=== PATIENT | female | born 1955 | race Caucasian/White ===

== ENCOUNTER 2017-09-09 21:15 | Observation (INO) ==
[2017-09-09] MEDS ORDERED: Aspirin 81 MG TAB.CHEW PO ONE (22:36)
[2017-09-09 23:19] LABS: Basophils # 0.1 K/mcL (0.0-0.2); Basophils % 0.6 %; Eosinophils # 0.2 K/mcL (0.0-0.6); Eosinophils % 2.2 %; Hematocrit 39.9 % (35.3-44.9); Hemoglobin 13.6 g/dL (11.5-15.4); Immature Granulocytes % 0.2 % (0-4); Lymphocytes # 3.5 K/mcL (0.6-4.6); Lymphocytes % 36.4 %; Mean Corpuscular HGB Conc 34.1 g/dL (31.6-35.5); Mean Corpuscular Hemoglobin 29.9 pg (28.0-33.3); Mean Corpuscular Volume 87.7 fL (83.0-100.0); Mean Platelet Volume 9.8 fL (9.4-12.4); Monocytes # 0.8 K/mcL (0.0-1.3); Monocytes % 8.7 %; Neutrophils # 4.9 K/mcL (1.6-8.9); Platelet Count 184 K/mcL (140-400); Red Blood Count 4.55 M/mcL (3.82-4.97); Red Cell Distribution Width 12.5 % (11.5-14.5); Segmented Neutrophils % 51.9 %
[2017-09-09 23:24] LABS: Prothrombin Time 11.1 Seconds (9.4-12.1)
--- NOTE | 2017-09-09 23:24 | Emergency Department Note ---
Disposition Clinical Impression: Neck pain, Elevated troponin Disposition: Admitted As Inpatient Condition: Fair General Adult HPI - General Chief complaint: ED Neck Pain/Injury Stated complaint: Neck Pain Time Seen by Provider: 09/09/17 22:35 Source: patient - History of Present Illness Pain Scale: 3 - Related Data Home Medications Medication Instructions Recorded Confirmed Aspirin [Lo-Dose Aspirin EC] 81 mg PO DAILY 09/10/17 09/10/17 Atorvastatin [Lipitor] 80 mg PO HS 09/10/17 09/10/17 Clopidogrel [Plavix] 75 mg PO DAILY 09/10/17 09/10/17 Metoprolol [Lopressor] 25 mg PO BID 09/10/17 09/10/17 Allergies Allergy/AdvReac Type Severity Reaction Status Date / Time codeine Allergy Palpitation Verified 09/09/17 21:35 s Past Medical History - Past Medical History Medical history: Reports: coronary artery disease, hyperlipidemia Psychiatric history: Reports: no psych history - Social History Smoking Status: Former smoker Alcohol use: Reports: none Drug use: Reports: none Physical Exam - General General appearance: alert, in no apparent distress Course - Reevaluation(s) Reevaluation #1: I examined this patient and my medical decision-making was reviewed with Dr. Duque. I agree with the documented findings, disposition and treatment plan. This is a 62 year-old female with history of HLD and CAD/RI/stent who presents with neck pain for the past day. The pain involves the anterior neck bilaterally , as well as the right paraspinal area, radiating down toward the shoulder. The pain is worse with head turning. Patient had some neck pain in association with her RI in 2010, and her current neck pain went away after NTG, so she wanted to be evaluated to make sure it wasn't her heart. She denies any associated chest pain, dyspnea, nausea, diaphoresis, sore throat, or otaltia. She is pain-free at this time. On exam, patient is comfortable. HEENT, heart, and lung exams normal. Neuro nonfocal. No bruit. Overall, patient's neck pain seems musculoskeletal in nature. We will perform testing to rule out ACS. Infection of the neck or vascular disease of the neck are unlikely given patient's history and exam. Time: 23:19 Vital Signs Temperature 98.1 F 09/09/17 21:36 Pulse Rate 64 09/09/17 21:36 Respiratory Rate 16 09/09/17 21:36 Blood Pressure 139/85 09/09/17 21:36 O2 Sat by Pulse Oximetry 98 09/09/17 21:36 Temperature 98.1 F 09/09/17 22:02 Pulse Rate 56 09/10/17 00:40 Respiratory Rate 16 09/10/17 00:40 Blood Pressure 144/86 09/10/17 00:40 O2 Sat by Pulse Oximetry 97 09/10/17 00:40 Oxygen Delivery Oxygen Delivery Room Air Medical Decision Making - Lab Data Result diagrams: 09/09/17 22:46 09/09/17 22:46 Lab Results 09/09/17 09/09/17 09/09/17 Range/Units 22:36 22:46 22:46 WBC 9.5 (4.3-11.1) K/mcL RBC 4.55 (3.82-4.97) M/mcL Hgb 13.6 (11.5-15.4) g/dL Hct 39.9 (35.3-44.9) % MCV 87.7 (83.0-100.0) fL MCH 29.9 (28.0-33.3) pg MCHC 34.1 (31.6-35.5) g/dL RDW 12.5 (11.5-14.5) % Plt Count 184 (140-400) K/mcL MPV 9.8 (9.4-12.4) fL Immature Gran % 0.2 (0-4) % Seg Neutrophils % 51.9 % Lymphocytes % 36.4 % Monocytes % 8.7 % Eosinophils % 2.2 % Basophils % 0.6 % Neutrophils # 4.9 (1.6-8.9) K/mcL Lymphocytes # 3.5 (0.6-4.6) K/mcL Monocytes # 0.8 (0.0-1.3) K/mcL Eosinophils # 0.2 (0.0-0.6) K/mcL Basophils # 0.1 (0.0-0.2) K/mcL PT 11.1 (9.4-12.1) Seconds INR 1.0 APTT 27.2 (26.0-36.0) Seconds Sodium 141 (136-145) mEq/L Potassium 3.5 (3.5-5.1) mEq/L Chloride 110 H (98-107) mEq/L Carbon Dioxide 24 (23-29) mEq/L BUN 8 (8-23) mg/dL Creatinine 0.70 (0.60-1.20) mg/dL Est GFR ( Amer) > 60 (> 60) Est GFR (Non-Af Amer) > 60 (> 60) BUN/Creatinine Ratio 11 (6-26) Glucose 115 H (70-105) mg/dL Calculated Osmolality 291 (280-300) Calcium 9.4 (8.6-10.3) mg/dL Troponin I 0.06 H* (< 0.04) ng/mL - Radiology Data Radiology results reviewed: Yes I reviewed the patient's radiology results. XR/XR chest 1V portable IMPRESSION: No significant findings in the chest. - EKG Data EKG #1 EKG attestation: Yes I reviewed and interpreted this EKG. EKG shows normal: sinus rhythm Rate: normal Rhythm: NSR [place]/QRS: normal Interpretation: no acute changes (inferior Q waves noted)
[2017-09-09 23:27] LABS: Activated Partial Thrombo Time 27.2 Seconds (26.0-36.0)
--- NOTE | 2017-09-09 23:37 | Emergency Department Note ---
Disposition Clinical Impression: Neck pain, Elevated troponin Disposition: Admitted As Inpatient Condition: Fair Referrals: Greg Kahn MD [Primary Care Provider] - Forms: ED Satisfaction Letter Time of Disposition: 00:27 General Adult HPI - General Chief complaint: ED Neck Pain/Injury Stated complaint: Neck Pain Time Seen by Provider: 09/09/17 22:35 Source: patient Mode of arrival: ambulatory Limitations: no limitations Nursing Notes Reviewed: Yes Vital Signs Reviewed: Yes - History of Present Illness HPI Narrative: Patient is a 62-year-old female that presented to the emergency department with neck pain. She states that the neck pain began yesterday and she had concerns because she had neck pain when she had a previous AK. Patient denies any chest pain, shortness of breath or nausea or diaphoresis at this time. Patient does state that she took one nitroglycerin and this relieved her neck pain. Patient states that the neck is not painful to touch but does hurt when she turns her neck. Patient denies any injury to the neck or any recent falls. Pain Scale: 3 - Related Data Home Medications Medication Instructions Recorded Confirmed Aspirin [Lo-Dose Aspirin EC] 81 mg PO DAILY 09/10/17 09/10/17 Atorvastatin [Lipitor] 80 mg PO HS 09/10/17 09/10/17 Clopidogrel [Plavix] 75 mg PO DAILY 09/10/17 09/10/17 Metoprolol [Lopressor] 25 mg PO BID 09/10/17 09/10/17 Allergies Allergy/AdvReac Type Severity Reaction Status Date / Time codeine Allergy Palpitation Verified 09/09/17 21:35 s All systems ED: reviewed and negative except as stated. Cardiovascular: Denies: chest pain Respiratory: Denies: dyspnea Gastrointestinal: Denies: abdominal pain, nausea, vomiting Musculoskeletal: Reports: neck pain Past Medical History - Past Medical History Medical history: Reports: coronary artery disease, hyperlipidemia Psychiatric history: Reports: no psych history - Social History Smoking Status: Former smoker Alcohol use: Reports: none Drug use: Reports: none Physical Exam - General Limitations: no limitations General appearance: alert, in no apparent distress - Head Head exam: atraumatic, normocephalic - Eye Eye exam: Present: normal appearance, EOMI - Neck Neck exam: Present: normal inspection, full ROM, trachea midline. Absent: tenderness - Expanded Neck Exam Neck exam focused ED: Absent: midline tenderness, paraspinal tenderness, tracheal deviation, anterior neck swelling, carotid bruit - Respiratory Respiratory exam: Present: normal lung sounds bilaterally. Absent: respiratory distress, wheezes - Cardiovascular Cardiovascular exam: Present: regular rate, normal rhythm, normal heart sounds, +S1, +S2 - Abdominal Exam Abdominal exam: Present: soft, Non-Tender, normal bowel sounds - Neurological Exam Neurological exam: Present: alert, oriented X3 - Psychiatric Psychiatric exam: Present: normal affect, normal mood - Skin Skin exam: Present: warm, dry, intact Course Vital Signs Temperature 98.1 F 09/09/17 21:36 Pulse Rate 64 09/09/17 21:36 Respiratory Rate 16 09/09/17 21:36 Blood Pressure 139/85 09/09/17 21:36 O2 Sat by Pulse Oximetry 98 09/09/17 21:36 Temperature 98.1 F 09/09/17 22:02 Pulse Rate 61 09/09/17 23:53 Respiratory Rate 16 09/09/17 23:53 Blood Pressure 149/101 09/09/17 23:53 O2 Sat by Pulse Oximetry 95 09/09/17 23:53 Oxygen Delivery Oxygen Delivery Room Air Medical Decision Making - MDM Narrative Medical decision making narrative: Due to the patient presenting with neck pain has been similar to previous pain when she had an AK we will obtain a CBC, BMP, troponin and chest x-ray and EKG. The patient's troponin was elevated 0.06. We have no previous troponins for comparison. Due to this being similar to patient's previous AK and having elevated troponin I feel that is necessary and the patient be admitted to the hospital for further evaluation and management. The patient's EKG did not show any evidence of STEMI at this time. Remainder of her laboratory testing was unremarkable. Patient was given an aspirin here in the emergency department. Chest x-ray showed no acute cardiopulmonary process. I called and spoke with the hospitalist and they have accepted the patient to their service. The patient will be admitted to the hospital for further evaluation and management this time. - Medical Records Medical records reviewed: Yes I reviewed the patient's medical records. - Lab Data Lab results reviewed: Yes I reviewed the patient's lab results. Result diagrams: 09/09/17 22:46 09/09/17 22:46 Lab Results 05/06/18 05/06/18 05/06/18 Range/Units 22:36 22:46 22:46 WBC 9.5 (4.3-11.1) K/mcL RBC 4.55 (3.82-4.97) M/mcL Hgb 13.6 (11.5-15.4) g/dL Hct 39.9 (35.3-44.9) % MCV 87.7 (83.0-100.0) fL MCH 29.9 (28.0-33.3) pg MCHC 34.1 (31.6-35.5) g/dL RDW 12.5 (11.5-14.5) % Plt Count 184 (140-400) K/mcL MPV 9.8 (9.4-12.4) fL Immature Gran % 0.2 (0-4) % Seg Neutrophils % 51.9 % Lymphocytes % 36.4 % Monocytes % 8.7 % Eosinophils % 2.2 % Basophils % 0.6 % Neutrophils # 4.9 (1.6-8.9) K/mcL Lymphocytes # 3.5 (0.6-4.6) K/mcL Monocytes # 0.8 (0.0-1.3) K/mcL Eosinophils # 0.2 (0.0-0.6) K/mcL Basophils # 0.1 (0.0-0.2) K/mcL PT 11.1 (9.4-12.1) Seconds INR 1.0 APTT 27.2 (26.0-36.0) Seconds Sodium 141 (136-145) mEq/L Potassium 3.5 (3.5-5.1) mEq/L Chloride 110 H (98-107) mEq/L Carbon Dioxide 24 (23-29) mEq/L BUN 8 (8-23) mg/dL Creatinine 0.70 (0.60-1.20) mg/dL Est GFR ( Amer) > 60 (> 60) Est GFR (Non-Af Amer) > 60 (> 60) BUN/Creatinine Ratio 11 (6-26) Glucose 115 H (70-105) mg/dL Calculated Osmolality 291 (280-300) Calcium 9.4 (8.6-10.3) mg/dL Troponin I 0.06 H* (< 0.04) ng/mL - Radiology Data Radiology results reviewed: Yes I reviewed the patient's radiology results. Chest X-Ray 09/09/17 22:36 IMPRESSION: No significant findings in the chest. D/ / Ilia Vazquez MD / Ilia Vazquez MD Interpreting Provider: Ilia Vazquez MD - EKG Data EKG #1 EKG attestation: Yes I reviewed and interpreted this EKG. EKG results narrative: EKG showed a sinus rhythm at a rate of 62 bpm, MA interval of 145, QRS duration of 97, QTc of 422 with a normal axis.
[2017-09-09 23:40] LABS: BUN/Creatinine Ratio 11 (6-26); Blood Urea Nitrogen 8 mg/dL (8-23); Calcium 9.4 mg/dL (8.6-10.3); Carbon Dioxide 24 mEq/L (23-29); Chloride 110 mEq/L (98-107); Glucose 115 mg/dL (70-105); Osmolality,Calculated 291 (280-300); Potassium 3.5 mEq/L (3.5-5.1); Sodium 141 mEq/L (136-145); eGFR For African Americans > 60 (> 60); eGFR For Non-African Americans > 60 (> 60)
[2017-09-09 23:45] LABS: Troponin I 0.06 ng/mL (< 0.04)
[2017-09-10] MEDS ORDERED: Naloxone 0.4 MG/ML INJ IVP PRN (02:23)
[2017-09-10] MEDS ORDERED: Nitroglycerin 0.4 MG TAB.SUBL SL PRN (02:25)
--- NOTE | 2017-09-10 02:26 | Internal Med History&Physical ---
Date of Encounter: 09/10/17 Time of Encounter: 02:26 Internal Medicine - H&P: HPI Chief complaint: Neck pain Admitted From: Emergency Dept Plans for Post Hospital Care: Home History of present illness: Ms. Rosales is a 62 year old female with h/o- CAD, presents with c/o- 2- day h/ o neck pain, Patient reports sudden onset, constant moderate intensity pain- pressure-like sensation in anterior neck, spreading to back of her neck and right shoulder. Pain is aggravated by movement and ambulation, relieved with Nitroglycerine. Patient claims she had similar pain when she had previous ME and stent placement. No shortness of breath, palpitations, diaphoresis, nausea, vomiting or dizziness. SHe has no h/o- esophageal issues. Past Med Surg Social Fam HX - Past Medical History Source: patient Medical history: coronary artery disease, GERD, hyperlipidemia Psychiatric history: no psych history - Past Surgical History Surgical History: angioplasty/stent, other (upper lip cancer excision) - Social History Smoking Status: Former smoker (quit 1 month ago) Packs per day: 1 Alcohol use: none Drug use: none Current living situation: Home, With Family Activity Level: Independent ambulation Recent Out of Country Travel Within the Last 8 Weeks: No Exposure or Possible Exposure to Illness During Travel: No - Family History Father Hx Family Cardiac Disorders: Yes ([place]) Mother Hx Family Cancer: Yes Internal Medicine - H&P: Meds Aspirin [Lo-Dose Aspirin EC] 81 mg PO DAILY 09/10/17 [History] Atorvastatin [Lipitor] 80 mg PO HS 09/10/17 [History] Clopidogrel [Plavix] 75 mg PO DAILY 09/10/17 [History] Metoprolol [Lopressor] 25 mg PO BID 09/10/17 [History] 3 Allergy/AdvReac Type Severity Reaction Status Date / Time codeine Allergy Palpitation Verified 09/09/17 21:35 s All Systems PM: A 10-system review of systems was performed and is negative for pertinent findings except as documented above in the HPI. - Constitutional Constitutional: no chills, no fever(s), no night sweats - EENT Eyes: no change in vision, no discharge, no pain, no photophobia Ears: no ear discharge, no ear pain, no tinnitus Nose, mouth and throat: no dysphagia, no nasal discharge, no neck pain, no sore throat - Cardiovascular Cardiovascular ROS IM: no chest pain, no diaphoresis, no dyspnea, no lightheadedness, no palpitations, no syncope - Respiratory Respiratory: no cough, no dyspnea, no wheezing, no excessive phlegm production - Gastrointestinal Gastrointestinal: no abdominal pain, no diarrhea, no hematemesis, no hematochezia, no melena, no nausea, no vomiting - Genitourinary Genitourinary: no change in urinary stream, no dysuria, no flank pain, no hematuria - Musculoskeletal Musculoskeletal ROS IM: limited range of motion, neck pain, no numbness, no tingling - Integumentary Integumentary IM: no rash, no unusual bruising - Neurological Neurological ROS: no confusion, no convulsions, no focal weakness, no numbness, no tingling, no tremor(s) - Hematologic/Lymphatic Hematologic/Lymphatic: no easy bruising - Constitutional Vitals: Temp Pulse Resp BP Pulse Ox 98.1 F 56 16 144/86 97 09/09/17 22:02 09/10/17 00:40 09/10/17 00:40 09/10/17 00:40 09/10/17 00:40 General appearance: Present: A&O X 3, answers questions appropriately - Neck Neck exam general surgery: Present: supple, trachea midline. Absent: lymphadenopathy Additional comments: nontender, no restriction in ROM - Respiratory Respiratory exam: Present: CTAB. Absent: accessory muscle use, rales, rhonchi, wheezes - Cardiovascular Cardiovascular exam: Present: RRR, +S1, +S2. Absent: diastolic murmur, gallop, rubs, systolic murmur - GI/Abdominal GI/Abdominal exam: Present: normal bowel sounds, soft, no peritoneal signs. Absent: distended, tenderness - Extremities Exam Extremities exam: Present: full ROM, warm, radial pulses palpable and symmetrical. Absent: calf tenderness, cyanotic, pedal edema - Neurological Exam Neurological exam: Present: CN II-XII intact, oriented X3, no focal deficits. Absent: pronater drift, facial droop, speech deficit - Skin Skin exam: Present: dry, intact Internal Med - H&P Results - Labs CBC & Chem 7: 09/10/17 03:56 09/10/17 03:56 - EKG Data -: EKG Interpreted by Myself EKG shows normal: sinus rhythm Rate: normal - Assessment and plan (1) Neck pain Current Visit: Yes Status: Acute Assessment and plan: anginal equivalent per patient. Noted to have mild Troponin leak 0.06; continue Telemetry monitoring, trend troponins; PRN Nitroglycerine. continue ASA, beta jone, statin; will consult Cardiology due to Trop leak; cannot get stress test due to positive Troponin; check lipid profile; (2) Elevated troponin Current Visit: Yes Status: Acute Assessment and plan: plan as above; (3) CAD (coronary artery disease) Current Visit: Yes Status: Chronic Assessment and plan: resume home meds; h/o- stents placed in 2010; Qualifiers: Coronary Disease-Associated Artery/Lesion type: [place] artery [place] vs. transplanted heart: [place] heart Associated angina: without angina Qualified Code(s): I25.10 - Atherosclerotic heart disease of [place] coronary artery without angina pectoris (4) Hyperlipidemia Current Visit: Yes Status: Chronic Qualifiers: Hyperlipidemia type: unspecified Qualified Code(s): E78.5 - Hyperlipidemia , unspecified - Time Spent With Patient Total time spent is greater than 50% in coordination of care (as documented) at patient's floor/unit and/or counseling patient:
[2017-09-10 04:17] LABS: Basophils # 0.1 K/mcL (0.0-0.2); Basophils % 0.8 %; Eosinophils # 0.2 K/mcL (0.0-0.6); Eosinophils % 2.4 %; Hematocrit 38.2 % (35.3-44.9); Hemoglobin 12.8 g/dL (11.5-15.4); Immature Granulocytes % 0.4 % (0-4); Lymphocytes # 3.1 K/mcL (0.6-4.6); Lymphocytes % 40.1 %; Mean Corpuscular HGB Conc 33.5 g/dL (31.6-35.5); Mean Corpuscular Hemoglobin 29.6 pg (28.0-33.3); Mean Corpuscular Volume 88.4 fL (83.0-100.0); Mean Platelet Volume 9.8 fL (9.4-12.4); Monocytes # 0.7 K/mcL (0.0-1.3); Monocytes % 8.4 %; Neutrophils # 3.8 K/mcL (1.6-8.9); Platelet Count 160 K/mcL (140-400); Red Blood Count 4.32 M/mcL (3.82-4.97); Red Cell Distribution Width 12.4 % (11.5-14.5); Segmented Neutrophils % 47.9 %
[2017-09-10 04:40] LABS: BUN/Creatinine Ratio 10 (6-26); Blood Urea Nitrogen 7 mg/dL (8-23); Carbon Dioxide 26 mEq/L (23-29); Chloride 111 mEq/L (98-107); Chol/HDL Ratio 3.4 (0-4.9); Cholesterol 95 mg/dL (< 200); Glucose 105 mg/dL (70-105); HDL Cholesterol 28 mg/dL (40-59); LDL Cholesterol,Calculated 31 mg/dL (0-99); Osmolality,Calculated 294 (280-300); Potassium 3.3 mEq/L (3.5-5.1); Sodium 143 mEq/L (136-145); Triglycerides 180 mg/dL (< 150); eGFR For African Americans > 60 (> 60); eGFR For Non-African Americans > 60 (> 60)
[2017-09-10] MEDS: Aspirin Enteric Coated 81 MG Tablet PO SCH (08:31)
--- NOTE | 2017-09-10 11:57 | Cardiology Consult Note ---
Addendum entered and electronically signed by aMrgaret Lancaster CNP 09/10/17 13: 15: Patient agreeable for LHC. Risks versus benefits of LHC explained to patient. Agreeable to proceed. Further recommendations pending LHC. Original Note: Date of Encounter: 09/10/17 Time of Encounter: 10:00 Assessment and Plan (1) Elevated troponin Current Visit: Yes Status: Acute Per cardiology: -Troponin 0.06, 0.07, 0.06. -Reports exertional anginal equivalent symptoms. -Denies current symptoms. -On asa, statin, plavix, BB. -NO acute ischemic ECG changes. -LHC 2010 with 40% proximal LAD, 90-99% proximal LAD with ELBA, 60% diagonal 1, 30% proximal circumflex, 30% OM1, 20% proximal RCA. -TTE 04/2011 with LVEF 55%, mild diastolic dysfunction. -Mild troponins, however concerning symptoms. Discussed potential LHC vs stress with patient. Patient wishes to discuss with son and then decide. Risks versus benefits of LHC explained to patient, states she will discuss with son and then decide. -Will check TTE. (2) Tobacco abuse Current Visit: Yes Status: Chronic Per cardiology: -Known tobacco abuse. -Smoking cessation education provided. Discussion w patient/family: The assessment and plan as outlined above was discussed with the patient who expressed understanding and agreement. All questions were answered. Thank you for involving us in the care of your patient. Please call with any questions. Discussed and reviewed with . History of Present Illness Consult date: 09/10/17 Requesting physician: Nika Stafford Consult reason: elevated troponinq Chief complaint: neck pain History of present illness: Ms. Rosales is a 62 year old female with a relevant past medical history of CAD s/p [place] and PCI, current tobacco abuse. Patient presented to [facility] with complaints of bilateral neck pain, reports symptoms worse with exertion. States symptoms relieved with rest and nitro. Denies current neck pain. Patient reports symptoms similar to previous angina, however states not as extreme. Past Med Surg Social Fam HX - Past Medical History Attestation: Yes The following information was validated with the patient. Source: patient, old records reviewed Medical history: coronary artery disease, GERD, hyperlipidemia Psychiatric history: no psych history - Past Surgical History Surgical History: angioplasty/stent, other (upper lip cancer excision) - Social History Smoking Status: Former smoker (quit 1 month ago) Packs per day: 1 Alcohol use: none Drug use: none - Family History Father Hx Family Cardiac Disorders: Yes ([place]) Mother Hx Family Cancer: Yes Medications and Allergies Aspirin [Lo-Dose Aspirin EC] 81 mg PO DAILY 09/10/17 [History] Atorvastatin [Lipitor] 80 mg PO HS 09/10/17 [History] Clopidogrel [Plavix] 75 mg PO DAILY 09/10/17 [History] Metoprolol [Lopressor] 25 mg PO BID 09/10/17 [History] 3 Allergy/AdvReac Type Severity Reaction Status Date / Time codeine Allergy Palpitation Verified 09/09/17 21:35 s All Systems Review: The remainder of the systems were reviewed and are negative - Cardiovascular Cardiovascular: as per HPI, chest pain with exertion Physical Examination Vital Signs, Last 4 Hours Temp Pulse Resp BP Pulse Ox 09/10/17 11:46 98.1 F 68 16 122/65 98 General: Conversant, No Apparent Distress HEENT: Atraumatic, Normocephaly, Mucus Membranes Moist Neck: No JVD, Normal carotid pulses Cardiac: Reg Rate and Rhythm, Normal S1 and S2, No Murmur Lungs: Normal Breath Sounds, No Wheeze, Rales, Rhonchi Neuro: Alert and responsive, No focal deficits noted Abdomen: Soft, Non-Tender Skin: No rashes noted on visualized skin Musculoskeletal: No Chest Wall Tenderness Extremities: No Clubbing, No Cyanosis, No Edema, Normal Pulses Results 09/10/17 03:56 09/10/17 03:56 Lab Results Impressions Chest X-Ray 09/09/17 22:36 IMPRESSION: No significant findings in the chest. D/ / Ilia Vazquez MD / Ilia Vazquez MD Interpreting Provider: Ilia Vazquez MD Active Medications Acetaminophen (Tylenol) 650 mg PO Q6HR PRN PRN Reason: Mild Pain/Fever Stop: 03/12/18 02:24 Aspirin (Aspirin Ec) 81 mg PO DAILY [facility] Stop: 03/12/18 09:01 Last Admin: 09/10/17 08:31 Dose: Not Given Atorvastatin Calcium (Lipitor) 80 mg PO HS [facility] Stop: 03/12/18 21:01 Clopidogrel Bisulfate (Plavix) 75 mg PO DAILY [facility] Stop: 03/12/18 09:01 Last Admin: 09/10/17 08:31 Dose: Not Given Metoprolol Tartrate (Lopressor) 25 mg PO BID [facility] Stop: 03/12/18 09:01 Last Admin: 09/10/17 08:31 Dose: Not Given Naloxone HCl (Narcan) 0.4 mg IVP Q2MIN PRN PRN Reason: SEE COMMENTS Stop: 03/12/18 02:24 Nitroglycerin (Nitroglycerin) 0.4 mg SL Q5MIN PRN PRN Reason: Chest Pain Stop: 03/12/18 02:26 Laboratory Tests 09/09/17 09/10/17 09/10/17 22:46 03:56 03:56 Hgb 12.8 Creatinine Troponin I 0.06 H* 0.07 H* 09/10/17 09/10/17 03:56 09:27 Hgb Creatinine 0.67 Troponin I 0.06 H* - Imaging and Cardiology Chest Xray: report reviewed Echo: report reviewed Cardiac cath: report reviewed - EKG Interpretation EKG results cardiology: personally reviewed (ECG with SR, HR 63.), other ( Telemetry reviewed with average HR previous 12 hours noted to be 63, SR. PVCs and PACs noted.) Consult Discharge Plan - Plan Referrals: Greg Kahn MD [Primary Care Provider] -
[2017-09-10] MEDS ORDERED: Heparin 1,000 UNITS/500 mL 500 ML ONE (15:30)
[2017-09-10] MEDS ORDERED: *HR* Heparin 10,000 UNIT/10 ML VIAL ONE (15:30)
[2017-09-10] MEDS ORDERED: 0.9 % Sodium Chloride 1,000 ML ONE ×2 (15:30→15:48)
[2017-09-10] MEDS ORDERED: Nitroglycerin 1,000 MCG/10 ML VIAL IV ONE (15:31)
[2017-09-10] MEDS ORDERED: Isovue-300 150 ML INFUS..BTL IV ONE (15:31)
[2017-09-10] MEDS ORDERED: *HR* Midazolam HCl 2 MG/2 ML VIAL ONE (15:47)
[2017-09-10] MEDS ORDERED: *HR* FentaNYL (PF) 100 MCG/2 ML VIAL ONE (15:48)
--- NOTE | 2017-09-10 15:53 | Pre-Sedation Evaluation ---
Pre-sedation evaluation - Pre-sedation checklist Date of procedure: 09/10/17 Procedure: LHC Recent Vitals: Last Vital Signs Temp 98.2 F 09/10/17 15:41 Pulse 77 09/10/17 15:41 Resp 15 09/10/17 15:41 BP 116/75 09/10/17 15:41 Pulse Ox 98 09/10/17 15:41 ASA Classification *see protocol: CLASS II-Mild systemic disease
--- NOTE | 2017-09-10 16:03 | Event Note ---
Date of Encounter: 09/10/17 Time of Encounter: 15:58 Seen and examined at bedside. Patient is new to me, information obtained from chart review and patient report. Sitting on edge of bed, waiting for left heart catheterization. She was symptomatic with neck pain that was similar to previous cardiac event. Denies neck pain, no chest pain on my exam. No shortness of breath. (1) NSTEMI presented with neck pain considered anginal equivalent (had similar symptoms with previous [place] and 2011). Serial troponins 0.06, 0.07, 0.06. EKG without acute ST changes. [facility] planned 09/10/17. Continue home ASA, Plavix, statin, BB. Cardiology following. TTE pending. (2) Elevated troponin plan as above; (3) CAD (coronary artery disease) per hx with stents placed in 2010. Plan as noted above. (4) Hyperlipidemia per hx. Cont home statin. (5) DVT prophylaxis: SCD
[2017-09-10] MEDS ORDERED: Tirofiban 12.5 MG/250ML 12.5 MG/250 ML BAG ONE (16:13)
[2017-09-10] MEDS ORDERED: ISOVUE-370 200 ML INFUS..BTL IV ONE (16:18)
[2017-09-10] MEDS ORDERED: Tirofiban 12.5 MG/250ML 12.5 MG/250 ML BAG IVC SCH (16:45)
--- NOTE | 2017-09-10 16:52 | Invasive Diagnostic Lab Proc ---
Name: Elyssa Rosales Date of Study: 09/10/2017 Date: 1955 Ht: 65.0in Medical Record#: [id number] Age: 62 Wt: 141.10lb Gender: Female BSA: 1.7 Order #: [id number] BMI: 23.51 Physicians Procedure Physician: Foreign Kuo MD Referring MD: Referring MD: Staff Name [facility] Monitor 03:47 PM Tiffanie Stokes RN Mason Helper 03:47 PM Vanessa Chapa RN Mason Helper 03:47 PM Luda Contreras RT (R) Scrub 03:47 PM Indications Indication Unstable Angina Procedures Performed Procedure L HRT ARTERY/VENTRICLE ANGIO PRQ CARD ELBA STENT W/ANGIO 1 VSL Pre-Procedure Checklist Informed consent is complete signed and on chart. H&P is on chart. ID band is on and ID verified with patient. Patient NPO for procedure The procedure was described for the patient and questions were answered. Blood Pressure: 122/65 ECG is on chart. Plan of Care Patient will tolerate the procedure without complications. Adequate level of comfort will be maintained. Hemodynamics will remain stable Patient will recover from procedure without complications. Respiratory function will be maintained. Cardiac rhythm will remain stable. Patient temperature will be maintained. Patient and/or family have verbalized understanding of the procedure. Patient Education Chief Complaint/Reason for Test: Cardiac Cath Developmental Category: Adult (18-64 years) Developmentally Appropriate for Age: Yes Learning Barriers: None Education Needs: Procedure Education Method: Verbal Information Taught: Cardiac Cath Educational Evaluation: Able to repeat information Intravenous Access Time IV Size Location DC'd Fluid/Drip Rate Units RN 03:41 PM Allergies Opioid codeine Vital Signs Time BP (mmHg) HR (bpm) O2 Sat. RR (bpm) LOC 03:42 PM 122 / 65 68 98 % 16 5 = Fully awake and oriented or at pre-proc level 03:53 PM / % 5 = Fully awake and oriented or at pre-proc level 03:53 PM / % 4 = Oriented but drowsy 04:08 PM / % 4 = Oriented but drowsy 04:23 PM / % 4 = Oriented but drowsy 03:55 PM 149 / 85 62 100 % 04:00 PM 154 / 85 70 100 % 04:05 PM 138 / 81 60 100 % 04:10 PM 138 / 87 71 100 % 04:15 PM 141 / 79 86 100 % 04:20 PM 133 / 80 87 100 % 04:25 PM 146 / 81 100 100 % 04:30 PM 146 / 96 89 100 % 04:36 PM 126 / 103 75 100 % Procedural Medications Time Medication Dose Units Method Given By 03:53 PM Oxygen 2 L/min nasal cannula Vanessa Chapa RN 03:58 PM Benadryl 25 mg Intravenous Vanessa Chapa RN 03:58 PM Versed 1 mg Intravenous Vanessa Chapa RN 04:05 PM Lidocaine 2% 20 ml Subcutaneous Foreign Kuo MD 04:05 PM Versed 1 mg Intravenous Vanessa Chapa RN 04:14 PM Heparin 3000 units Intravenous Tiffanie Stokes RN 04:16 PM Aggrastat Bolus: 33 ml Intravenous Vanessa Chapa RN 04:16 PM Aggrastat 12.5mg/250ml 12 ml/hr Intravenous Vanessa Chapa RN 04:39 PM Plavix 300 mg Orally Vanessa Chapa RN ASA Classification: CLASS II- Mild systemic disease (i.e. well-controlled diabetes, hypertension, asthma, cigarette smoking) Barbara Score Preprocedure Postprocedure Activity 2- Moves 4 extremities sustained head lift Activity 2- Moves 4 extremities sustained head lift Circulation 2- SBP +/= 20 points of pre-anesthetic level Circulation 2- SBP +/= 20 points of pre-anesthetic level Consciousness 2- Awake and alert oriented x 3 Consciousness 2- Awake and alert oriented x 3 O2 Saturation 2- Able to maintain O2 satruation of 92% on room air O2 Saturation 2- Able to maintain O2 satruation of 92% on room air Respiratory 2- Able to deep breathe and cough well Respiratory 2- Able to deep breathe and cough well Total Score 10 Total Score 10 Contrast Agent: Isovue Diagnostic Contrast: 104 ml Total Contrast: 104 ml Fluoro Dose: 389 mGy Procedure Log Time Note Enter By 03:47 PM Pt arrived to laboratory apparatus glass blower 2 at 15:47 [email or web address] 03:47 PM Venita Sierra RN Position: Monitor Time in: 15:47 [email or web address] 03:47 PM Tiffanie Stokes RN Position: Mason Helper Time in: 15:47 [email or web address] 03:47 PM Vanessa Chapa RN Position: Mason Helper Time in: 15:47 [email or web address] 03:47 PM Luda Contreras RT (R) Position: Scrub Time in: 15:47 [email or web address] 03:47 PM Patient charges- Angio tray pack, Navilyst 3mm J, Pulse Oximetry and ACIST tubing and transducer mm 03:47 PM Case Delayed No oumm 03:47 PM Physican paged/called 15:47. oumm 03:51 PM Physician arrived 15:51 mm 03:51 PM Meet and greet completed 03:51 PM Sign in performed according to hospital policy. mm 03:51 PM Procedure start 15:51 oumm 03:51 PM ASA Class CLASS II- Mild systemic disease (i.e. well-controlled diabetes, hypertension, asthma, cigarette smoking) mm 03:51 PM Hair removed from procedure site in procedure lab using clippers. Bilateral groin prepped with Chloraprep by Venita Sierra RN, then patient was draped. Skin intact. mm 03:52 PM CathStat 03:53 PM Time: 15:53 Patient comfortable and pain free: Yes 03:53 PM Time: 15:53LOC: 5 = Fully awake and oriented or at pre-proc level 03:53 PM Time: 15:53 Oxygen on at 2 L/min per nasal cannula by Vanessa Chapa RN [facility] 03:53 PM Clinical Presentation: Unstable angina [facility] 03:54 PM Vitals capture started with the following parameters, Patient=Adult, Interval=5 min, Initial Ggfiuwkf=182 mmHg, Deflation Rate=5 mmHg, Cuff placed on Right Arm 03:55 PM HR=62 bpm, RNZZ=799/85 mmhg, EwF9=003.0 %, Comment=NSR 03:58 PM Time: 15:58 Benadryl 25 mg Intravenous Given by Vanessa Chapa RN [email or web address] 03:59 PM Time: 15:58 Versed 1 mg Intravenous Given by Vanessa Chapa RN andréskeysha 04:00 PM HR=70 bpm, MDMO=606/85 mmhg, JsN7=915.0 %, Comment=NSR 04:04 PM Recorded ECG: HR=68 Condition=Condition 1 04:04 PM Pressure channel 1 zeroed. 04:04 PM Time out performed according to hospital policy 04:05 PM HR=60 bpm, XUHN=309/81 mmhg, PyY8=977.0 %, Comment=NSR 04:05 PM Time: 16:05 20 ml Lidocaine 2% to right groin Subcutaneous Given by Foreign Kuo MD [email or web address] 04:05 PM Micro-Introducer Kit utilized for sheath placement 04:05 PM Time: 16:05 Versed 1 mg Intravenous Given by Vanessa Chapa RN 04:08 PM Time: 15:53LOC: 4 = Oriented but drowsy 04:08 PM Time: 15:53 Patient comfortable and pain free: Yes 04:08 PM Access obtained by percutaneous puncture. 6Fr 10cm [place] sheath placed in right Femoral artery. [id number] mm 04:08 PM 0.035 145cm Navilyst 3mmJ wire [id number] 04:08 PM 5Fr FR 4 catheter inserted over the wire [facility] 04:09 PM j wire removed 04:09 PM Recorded Pressure: Ao, HR=69, Condition=Condition 1 (Aorta) Ao 131/83/105 04:10 PM RCA angiography performed in multiple views. mm 04:10 PM Catheter removed 04:10 PM 5Fr FL 4 catheter inserted over the wire [facility] 04:10 PM HR=71 bpm, WUYJ=689/87 mmhg, QdZ7=225.0 %, Comment=NSR 04:10 PM LCA angiography performed in multiple views. 04:11 PM Recorded Pressure: Ao, HR=67, Condition=Condition 1 (Aorta) Ao 127/78/100 04:13 PM Catheter removed [facility] 04:13 PM 5Fr Pigtail catheter inserted over the wire [facility] 04:13 PM Catheter selectively placed in left ventricle mm 04:13 PM Recorded Pressure: LV, HR=82, Condition=Condition 1 (Left Ventricle) LV 136/5/7 04:14 PM Bolus angiogram of left Ventricle complete: 10 ml/sec for a total of 20 mls lucas 04:14 PM Time: 16:14 Heparin 3000 units Intravenous Given by Tiffanie Stokes RN [email or web address] 04:14 PM Recorded Pressure: LV, Ao, HR=77, Condition=Condition 1 (Left Ventricle) LV 121/21/24, (Aorta) Ao 123/83/102 04:15 PM Catheter removed mm 04:15 PM Inflation device was opened. tsoumm 04:15 PM HR=86 bpm, UYBQ=954/79 mmhg, WiF4=526.0 %, Comment=NSR 04:15 PM 6Fr JR 4 [place] Bright-Tip guide catheter was used to cannulate the PCI vessel successfully. reused? No tsoumm 04:15 PM Coronary Dominance: right tsoummers 04:16 PM Lesion found in Mid RCA. Pre Stenosis: 95 Pre LESLIE Flow: 3: Complete and Brisk Flow/Perfusion tsoumm 04:16 PM Right Coronary, Right Posterior Descending Arteries with Right Posterolateral and Acute Marginal branches with 95 % stenosis. If graft is supplying this area, 0 % stenosis mm 04:16 PM Time: 16:16 Aggrastat Bolus: 33 ml Intravenous Given by Vanessa Chapa RN Edward pump mm 04:16 PM Time: 16:16 Aggrastat 12.5mg/250ml 12 ml/hr Intravenous Given by Vanessa Chapa RN Edward pump oumm 04:17 PM Recorded Pressure: Ao, HR=85, Condition=Condition 1 (Aorta) Ao 132/77/102 04:17 PM .014 [employer] [place] 190cm guide wire across target lesion- successful. reused? No mm 04:19 PM 2.0 mm x 12 mm Emerge [employer] balloon across target lesion- successful. reused? No tsoummers 04:20 PM HR=87 bpm, QTED=496/80 mmhg, PhS8=780.0 %, Comment=NSR 04:20 PM Balloon inflated @ 6 hugh for 8 seconds tsoumm 04:20 PM Balloon inflated @ 6 hugh for 9 seconds tsoumm 04:21 PM Balloon inflated @ 6 hugh for 14 seconds tsoumm 04:22 PM Balloon catheter removed intact. tsoumm 04:22 PM Recorded Pressure: Ao, HR=91, Condition=Condition 1 (Aorta) Ao 128/76/99 04:22 PM 3.0mm x 24mm Synergy drug-eluting stent across target lesion- successful Lot #[id number] tsoummers 04:23 PM Time: 16:08 Patient comfortable and pain free: Yes tsoummers 04:23 PM Time: 16:08LOC: 4 = Oriented but drowsy tsoummers 04:24 PM Stent deployed @ 11 hugh for 10 seconds tsoummers 04:25 PM Stent balloon reinflated @ 16 hugh for 9 seconds tsoummers 04:25 PM Stent delivery system removed intact. tsoummers 04:25 PM Recorded Pressure: Ao, HR=93, Condition=Condition 1 (Aorta) Ao 131/94/112 04:25 PM JO=492 bpm, EYQY=188/81 mmhg, TiD1=031.0 %, Comment=NSR 04:27 PM 3.5mm x 12mm Synergy drug-eluting stent across target lesion- successful Lot #[id number] tsoummers 04:28 PM Stent deployed @ 11 hugh for 12 seconds tsoummers 04:28 PM Stent balloon reinflated @ 16 hugh for 6 seconds tsoummers 04:29 PM Stent balloon reinflated @ 16 hugh for 7 seconds tsoummers 04:30 PM Stent delivery system removed intact. tsoummers 04:30 PM HR=89 bpm, FAMR=815/96 mmhg, GyS2=692.0 %, Comment=NSR 04:30 PM Guide wire removed intact. tsoummers 04:30 PM Recorded Pressure: Ao, HR=89, Condition=Condition 1 (Aorta) Ao 140/83/108 04:31 PM Guide catheter removed intact. tsoummers 04:31 PM [facility] PM Did you address LESLIE flow and Dominance? Yes [facility] 04:33 PM Sign out completed: Radiation Dose 389.39 mGy Fluoro Time: 7.8 Isovue 370 - 200ml contrast 104 ml given by Foreign Kuo MD. Complications: NoneCardiac Rehab Consult needed: YesConfirmed administered medications: Yes mmers 04:33 PM Isovue 370 - 200ml,2 Bottle(s) used. tsmmers 04:33 PM Arterial sheath pulled, Angio-seal closure device used and was Successful 237000 S[facility]N. [facility] 04:35 PM Estimated Blood Loss: less than 20cc tsoummers 04:35 PM Post ECG NSR mm 04:35 PM Post Blood Pressure 146/96 mm 04:35 PM Information taught Cardiac Cath, PCI, and Angioseal 04:35 PM Education needs Plan of Care, Procedure, and Responsibilities of Patient in Care 04:35 PM Learning barriers :None 04:35 PM Education Methods Verbal 04:36 PM Education evaluation Able to repeat information 04:36 PM HR=75 bpm, HHJQ=481/103 mmhg, EqZ4=083.0 %, Comment=NSR 04:36 PM Site status No bleeding/hematoma - Rt Groin as reported by Luda Contreras RT (R) at 16:36 04:36 PM Opsite applied 04:36 PM Plavix, Effient or Brilinta given No mm 04:36 PM Delay to floor No mm 04:36 PM Family placed in consult room. 04:36 PM Complications: None 04:36 PM Fluoro Time: 7.8 04:37 PM Isovue 370 - 200ml contrast [address] Kuo. 04:37 PM Radiation Dose 389.39 mGy 04:38 PM Time: 16:23LOC: 4 = Oriented but drowsy 04:38 PM Time: 16:23 Patient comfortable and pain free: Yes 04:39 PM Time: 16:39 Plavix 300 mg Orally Given by Vanessa Chapa RN mm 04:40 PM Lesion found in Mid LAD. Pre Stenosis: 65 Pre LESLIE Flow: tsoummers 04:40 PM Lesion found in Distal RCA. Pre Stenosis: 25 Pre LESLIE Flow: tsoummers 04:40 PM Lesion found in Distal Circumflex. Pre Stenosis: 40 Pre LESLIE Flow: tsoummers 04:40 PM Mid/Distal Left Anterior Descending Coronary Artery and diagonal branches with 65% stenosis. If graft is supplying this area, 0 % stenosis [facility] 04:40 PM Circumflex, Obtuse Marginal, Left Posterior Descending, and Left Posterolateral Coronary Arteries with 40 % stenosis. If graft is supplying this area, 0 % stenosis umer 04:41 PM Report given to Sb GARG Pt taken to 3B Room #44. 16:41 umer 04:41 PM Patient out of room: 16:41 umer Complications Complication None Hemodynamics Pressures Site Systolic/A Wave Diastolic/V Wave Mean AO 131 83 105 AO 127 78 100 LV 136 5 7 LV 121 21 24 AO 123 83 102 AO 132 77 102 AO 128 76 99 AO 131 94 112 AO 140 83 108 Post Procedure Information Blood Pressure: 146/96 mmHg Rhythm: NSR Post procedural instructions were given Closure Device Time Device Success/Fail 09/10/2017 4:38:00 PM Angio-Seal VIP Successful Site Checks Time Location Status Staff Sheath In? Note 04:36 PM Rt Groin No bleeding/hematoma Luda Contreras RT (R) Pulses Time Site Pre-Procedure Post-Procedure Note 09/10/2017 3:41:00 PM Bilateral radial 2+ 09/10/2017 3:42:00 PM Bilateral DP 1+ Updated by Venita Sierra RN on 09/10/2017 4:43:46 PM electronically signed on 09/10/2017 4:44:58 PM with status of Final
[2017-09-10] MEDS: Acetaminophen 325 MG TABLET PO PRN (17:42)
[2017-09-11] MEDS: Acetaminophen 325 MG TABLET PO PRN (05:45)
[2017-09-11 07:26] LABS: BUN/Creatinine Ratio 13 (6-26); Blood Urea Nitrogen 8 mg/dL (8-23); Calcium 8.8 mg/dL (8.6-10.3); Carbon Dioxide 21 mEq/L (23-29); Chloride 114 mEq/L (98-107); Glucose 103 mg/dL (70-105); Osmolality,Calculated 295 (280-300); Potassium 3.8 mEq/L (3.5-5.1); Sodium 143 mEq/L (136-145); eGFR For African Americans > 60 (> 60); eGFR For Non-African Americans > 60 (> 60)
[2017-09-11 07:55] LABS: Basophils # 0.1 K/mcL (0.0-0.2); Basophils % 0.7 %; Eosinophils # 0.1 K/mcL (0.0-0.6); Eosinophils % 1.9 %; Hematocrit 38.2 % (35.3-44.9); Hemoglobin 12.7 g/dL (11.5-15.4); Immature Granulocytes % 0.1 % (0-4); Lymphocytes # 2.5 K/mcL (0.6-4.6); Lymphocytes % 33.7 %; Mean Corpuscular HGB Conc 33.2 g/dL (31.6-35.5); Mean Corpuscular Hemoglobin 29.5 pg (28.0-33.3); Mean Corpuscular Volume 88.8 fL (83.0-100.0); Mean Platelet Volume 10.1 fL (9.4-12.4); Monocytes # 0.6 K/mcL (0.0-1.3); Monocytes % 7.9 %; Neutrophils # 4.1 K/mcL (1.6-8.9); Platelet Count 167 K/mcL (140-400); Red Cell Distribution Width 12.7 % (11.5-14.5); Segmented Neutrophils % 55.7 %
[2017-09-11] MEDS: Aspirin Enteric Coated 81 MG Tablet PO SCH (09:13)
--- NOTE | 2017-09-11 10:45 | Cardiology Progress Note ---
Date of Encounter: 09/11/17 Time of Encounter: 09:00 Assessment and Plan (1) Elevated troponin Current Visit: Yes Status: Acute Per cardiology: -Troponin 0.06, 0.07, 0.06. -Reports exertional anginal equivalent symptoms. -S/p [facility] yesterday with unofficial report reviewed with ELBA to RCA. -Denies current symptoms. -On asa, statin, plavix, BB. -Educated on importance of dual anti-platelet therapy uninterrupted for at least one year. Patient states understanding. -Right groin access site management education reviewed with patient. -TTE pending. -Anticipate cardiology sign off pending TTE. -Will arrange outpatient follow up. (2) Tobacco abuse Current Visit: Yes Status: Chronic Per cardiology: -Known tobacco abuse. -Smoking cessation education provided. Discussion w patient/family: The assessment and plan as outlined above was discussed with the patient who expressed understanding and agreement. All questions were answered. Thank you for involving us in the care of your patient. Please call with any questions. Discussed and reviewed with . Subjective Principal diagnosis: angina Interval history: Patient is s/p [facility] yesterday. Denies chest pain or neck pain. Denies issues walking or using right leg. Objective Vital Signs, Last 4 Hours Temp Pulse Resp BP Pulse Ox 09/11/17 07:15 97.5 F L 60 16 116/73 98 General: Conversant, No Apparent Distress HEENT: Atraumatic, Normocephaly, Mucus Membranes Moist Neck: No JVD, Normal carotid pulses Cardiac: Reg Rate and Rhythm, Normal S1 and S2, No Murmur Lungs: Normal Breath Sounds, No Wheeze, Rales, Rhonchi Neuro: Alert and responsive, No focal deficits noted Abdomen: Soft, Non-Tender Skin: No rashes noted on visualized skin, Other (Right groin access site without hematoma or ecchymosis. ) Musculoskeletal: No Chest Wall Tenderness Extremities: No Clubbing, No Cyanosis, No Edema, Normal Pulses Results 09/11/17 06:30 09/11/17 06:30 Lab Results Active Medications Acetaminophen (Tylenol) 650 mg PO Q6HR PRN PRN Reason: Mild Pain/Fever Stop: 03/12/18 02:24 Last Admin: 09/11/17 05:45 Dose: 650 mg Aspirin (Aspirin Ec) 81 mg PO DAILY [facility] Stop: 03/12/18 09:01 Last Admin: 09/11/17 09:13 Dose: 81 mg Atorvastatin Calcium (Lipitor) 80 mg PO HS [facility] Stop: 03/12/18 21:01 Last Admin: 09/10/17 20:18 Dose: 80 mg Clopidogrel Bisulfate (Plavix) 75 mg PO DAILY [facility] Stop: 03/12/18 09:01 Last Admin: 09/11/17 09:13 Dose: 75 mg Metoprolol Tartrate (Lopressor) 25 mg PO BID [facility] Stop: 03/12/18 09:01 Last Admin: 09/11/17 09:13 Dose: 25 mg Naloxone HCl (Narcan) 0.4 mg IVP Q2MIN PRN PRN Reason: SEE COMMENTS Stop: 03/12/18 02:24 Nitroglycerin (Nitroglycerin) 0.4 mg SL Q5MIN PRN PRN Reason: Chest Pain Stop: 03/12/18 02:26 Laboratory Tests 09/11/17 09/11/17 06:30 06:30 Hgb 12.7 Creatinine 0.60 - Imaging and Cardiology Chest Xray: report reviewed Echo: pending, report reviewed Cardiac cath: report reviewed - EKG Interpretation EKG results cardiology: other (Telemetry reviewed with average HR previous 12 hours noted to be 66, SR. PVCs and PACs noted.) Consult Discharge Plan - Plan Referrals: Greg Kahn MD [Primary Care Provider] - 09/18/17 9:00 am
[2017-09-11 15:18] VITALS: BP 122/85
--- NOTE | 2017-09-11 16:30 | Discharge Summary ---
- NOTES TO OUTPATIENT PROVIDER Notes to Outpatient Provider: Pt admitted for chest pain, [facility] with PTCA/ELBA placement in mid RCA. Pt will follow up with cardiology for reevaluation. Orders not resulted at time of discharge: Pending orders 09/10/17 12:06 EV echocardiogram Routine 09/10/17 16:36 ECG 12 lead ECG [ECG] Stat 09/11/17 07:00 ECG 12 lead ECG [ECG] Routine Date of Encounter: 09/11/17 Time of Encounter: 10:05 - Discharge Diagnosis (1) Neck pain Priority: Secondary Status: Resolved Assessment and Plan: Pt with bilateral neck pain associated with chest pain and elevated troponin. Pt denies at this time, denies chest pain or SOB. Cardiology [facility] yesterday with ELBA, will follow up in the office after discharge. (2) Elevated troponin Priority: Secondary Status: Acute Assessment and Plan: Plan as above. (3) CAD (coronary artery disease) Priority: Primary Status: Chronic Assessment and Plan: chronic. Pt admitted with chest pain [facility] 09/10/17 showed severe 1 vessel CAD. Left ventricle EF 60%. Patient has successful PTCA/ELBA placement in mid RCA. Recommend optimal therapy and aggressive risk factor modification. Triglycerides markedly elevated at 180, cholesterol is within normal limits. Continue to encourage lifestyle modifications and diet change. Continue Lipitor , Plavix, beta jone, aspirin. Pt understands the importanace of DAPT for a year uninterrupted. Echocardiogram today shows LVEF 60%, mild LV DD, mild MR, mild TR. Continue aspirin and Plavix by mouth daily. Qualifiers: Coronary Disease-Associated Artery/Lesion type: [place] artery [place] vs. transplanted heart: [place] heart Associated angina: without angina Qualified Code(s): I25.10 - Atherosclerotic heart disease of [place] coronary artery without angina pectoris (4) Hyperlipidemia Priority: Secondary Status: Chronic Assessment and Plan: Chronic. Continue Lipitor. Qualifiers: Hyperlipidemia type: unspecified Qualified Code(s): E78.5 - Hyperlipidemia , unspecified Hospital course: Ms. Rosales is a 62 year old female with PMH of CAD, HLD, tobacco abuse. Pt admitted for zeinab neck pain and chest pain. [facility] with ELBA in right LAD. Pt will continue Plavix and ASA. She states that she is feeling better. Cardiology has seen her and have signed off, will follow up in the clinic after discharge. Pt denies chest pain or neck pain. Labs and vitals are stable and WNL. Pt is ready for discharge. Discharge discussed with: patient, family - Time Spent with Patient Total time spent providing and/or coordinating discharge services: Less than 30 minutes - Discharge Medications Home Medications: Aspirin [Lo-Dose Aspirin EC] 81 mg PO DAILY 09/10/17 [History] Atorvastatin [Lipitor] 80 mg PO HS 09/10/17 [History] Clopidogrel [Plavix] 75 mg PO DAILY 09/10/17 [History] Metoprolol [Lopressor] 25 mg PO BID 09/10/17 [History] Allergies/Adverse Reactions: 3 Allergy/AdvReac Type Severity Reaction Status Date / Time codeine Allergy Palpitation Verified 09/09/17 21:35 s Date of admission: 09/10/17 00:44 Primary care physician: Greg Kahn Consults: 09/10/17 05:03 Consult to Cardiology [CONS] Routine Comment: Consulting Provider: Cardiology Jahaira Reason for Consult: Neck pain, similar to previous [place]; mild Troponin leak Call Completed: No 09/10/17 16:36 Consult to Cardiac Rehabilitation-Phase1 [CONS] Routine Comment: Reason for Consult: AMI Call Completed: Yes Consult to Nurse Navigator [CONS] Routine Comment: Discharging clinician: Vielka Collier Anticipated date of discharge: 09/11/17 - Constitutional Vitals: Temp Pulse Resp BP Pulse Ox 98 F 68 16 122/85 97 09/11/17 15:17 09/11/17 15:17 09/11/17 15:17 09/11/17 15:17 09/11/17 15:17 General appearance: Present: cooperative, A&O X 3, pleasant, no acute distress, answers questions appropriately. Absent: mild distress - Head Head exam: Present: atraumatic, normal inspection, normocephalic - Eye Eye exam: Present: normal appearance, conjuntiva pink, sclera anicteric - Neck Neck exam general surgery: Present: supple, trachea midline. Absent: lymphadenopathy, tenderness - Respiratory Respiratory exam: Present: CTAB. Absent: accessory muscle use, decreased breath sounds, rales, respiratory distress, rhonchi, wheezes - Cardiovascular Cardiovascular exam: Present: RRR, +S1, +S2. Absent: diastolic murmur, gallop, rubs, systolic murmur - GI/Abdominal GI/Abdominal exam: Present: normal bowel sounds, soft. Absent: distended, hepatomegaly, tenderness - Extremities Exam Extremities exam: Present: normal capillary refill, normal inspection, warm, radial pulses palpable and symmetrical. Absent: calf tenderness, cyanotic, pedal edema - Neurological Exam Neurological exam: Present: alert, oriented X3, no focal deficits. Absent: facial droop, speech deficit - Skin Skin exam: Present: dry, intact, normal color, warm. Absent: rash - Patient Status Disposition: Home, Self-Care Condition: Fair Functional capacity at discharge: independent ambulation Overall status at discharge: patient is progressing back to baseline - Discharge Instructions Instructions: Left Heart Catheterization (DC) Follow Up With: Cardiology Jahaira [Provider Group] (Office will call you to schedule follow up appointment) Greg Kahn MD [Primary Care Provider] - 09/18/17 9:00 am Additional Instructions: RISK FACTORS: STOP SMOKING: If you smoke, STOP. Smoking or tobacco use significantly increases your risk of heart disease because nicotine causes the arteries to narrow or constrict. It also causes fats to stick to the artery. Your chances of having a heart attack are greatly increased if you continue to smoke. For more information, call the education line for smoking cessation 6-443-YPSPVIG EAT A LOW FAT/CHOLESTEROL/SODIUM DIET: This diet may help reduce your chances of having a heart attack. LIFTING: Avoid lifting anything more than 10 pounds for 5-7 days Prior to straining, laughing, sneezing and/or coughing, apply manual pressure directly over insertion site. ACTIVITY: You may walk or climb stairs as tolerated You can resume sexual activity as tolerated In general, you are encouraged to engage in a minimum of 30 minutes or more of moderate intensity physical activity, such as brisk walking, daily or at least 3 -4 times weekly BATHING Do not submerge the site into water (bath tub, hot tub, swimming pool) for 1 week. This can be a source for infection into the blood stream. You may shower after 24 hours SITE CARE: After 24 hours, you may remove the dressing and leave the site open to air. Keep the site clean and dry. Clean gently and pat dry. You can expect bruising and tenderness that gradually resolve within a week or two. Return to work as instructed per your physician Resume driving as instructed per physician Keep all scheduled follow up appointments Resume medications as instructed IMPORTANT: If prescribed a Platelet Aggregation Inhibitor such as, Plavix, Brilinta or Effient: Duration of therapy is minimum one year These medications are often used in combination with Aspirin in prevention of future heart attacks Never discontinue unless consult with your Manager Ethics STROKE (CVA) Risk factors for a stroke are: Age, cigarette smoking, diabetes, excessive alcohol consumption, family history, high blood pressure, overweight, physical inactivity, prior stroke, heart attack, diagnosis of carotid artery stenosis or other artery disease. Warning signs: Sudden numbness or weakness of the face, arm or leg; especially on one side of the body, sudden confusion, trouble speaking or understanding, sudden trouble seeing in one or both eyes, sudden trouble walking, dizziness, loss of balance or coordination, sudden severe headache with no cause. Call 911 or go to the Emergency Room. CONGESTIVE HEART FAILURE: If you have been diagnosed with Congestive Heart Failure (CHF) and your symptoms return, make an appointment with your physician Weigh yourself daily. Notify your physician if you have a weight gain of two or more pounds in one day or five or more pounds in one week. If you experience any difficulty breathing, please call 911 BLEEDING: Although the risk of bleeding is minimal, it can happen. If you have any bleeding from the site, apply firm pressure above the puncture site for 10-15 minutes. If the bleeding does not stop, continue manual pressure and call 911 Contact your physician if: You develop a fever greater than 101 degrees Fahrenheit Your site becomes reddened or has any drainage You have an increase in pain or burning at the site or if a large knot forms at the site. If you experience chest pain, shortness of breath, dizziness, or extreme tiredness, stop the activity and rest. Please notify your physicians office if you experience any of these symptoms and they are not relieved by rest please call 911! - Diet and Activity Activity: increase activity as tolerated, return to work once cleared by your PCP/specialist Diet: low fat, low cholesterol, low salt diet
--- NOTE | 2017-09-11 16:33 | Electrocardiograph Report ---
[address] [place] [address] Test Date: 2017-09-09 Pat Name: Elyssa Rosales Department: 104 Room: 3B44 Gender: F Phlebotomy Manager: : [id number] Requested By: Naveed Estrada Order Number: [id number] Reading MD: Katlin Alcantara Measurements Intervals [place] Rate: 63 P: 62 [place]: 145 QRS: 60 QRSD: 97 T: 46 QT: 416 QTc: 422 Interpretive Statements SINUS RHYTHM NONSPECIFIC ST ABNORMALITIES Electronically Signed On 09-11-2017 16:31:42 EDT by Katlin Alcantara
== END 2017-09-11 17:00 | disposition home or self-care (01) ==
LOC: EMEROO 21:15 → 3BNU 21:15
PROVIDERS: ADMIT Internal Medicine; ATTEND Internal Medicine